=== PATIENT | female | born 1960 | race Caucasian/White ===

== ENCOUNTER 2017-07-07 19:01 | Emergency (ER) | payer MEDICARE, MEDICAID ==
[2017-07-07 19:40] VITALS: BP 158/102; PULSE 97; RESP 23; TEMP 98.1; O2SAT 97
[2017-07-07] MEDS ORDERED: SODIUM CHLORIDE 0.9% FLUSH 10 ML FLUSH IVF PRN (20:00)
[2017-07-07] MEDS ORDERED: methylPREDNISolone SOD SUCC 125 MG/2 ML VIAL IV PUSH ONE (20:00)
[2017-07-07] MEDS ORDERED: RESP: LIDOCAINE HCL 4% PF 5 ML NEB NEB ONE (20:00)
--- NOTE | 2017-07-07 20:00 | PD ---
HPI Chief Complaint: Respiratory Symptoms Time Seen by Provider: 19:44 Travel History International Travel<30 days: No Contact w/Intl Traveler<30days: No Traveled to known affect area: No History of Present Illness HPI The patient is a 56-year-old female who presents to emergency department for shortness of breath and wheezing. The patient notes for episodes of bronchitis in the last 6 months requiring antibiotics. The patient states every time she is exposed to her grandchildren will have cough and cold symptoms she develops wheezing and coughing. The patient states she awakened from sleep earlier today and was gasping for air, was short of breath, felt like she was choking. The patient does have a history of sleep apnea and was using her CPAP. She does complain of wheezing and a dry nonproductive cough. She denies any tobacco use or known history of COPD, asthma, or congestive heart failure. She does have a history of diabetes and sleep apnea. She recently changed physicians and is currently seen in the [facility]. She denies any recent hospitalizations, travel, or surgery. She denies any history of pulmonary embolism or DVT. She denies any lower extremity edema. Symptoms are moderate. PFSH Past Medical History Diabetes: Yes Patient Takes Glucophage: No Hypertension: Yes Neurologic: Yes (Neuropathy) Respiratory: Yes (Bronchitits) Sleep Apnea: Yes Tetanus Vaccination: > 5 Years Influenza Vaccination: Yes ?: Not Menopausal: Yes : 3 Para: 2 Miscarriage: 1 : 0 Past Surgical History Section: Yes (x2) Tonsillectomy: Yes Social History Alcohol Use: Yes (Occ) Tobacco Use: No Substance Use: No Allergies-Medications (Allergen,Severity, Reaction): Coded Allergies: No Known Allergies (Unverified , 07/07/17) Reported Meds & Prescriptions Reported Meds & Active Scripts Active Reported Glipizide 5 Mg Tab 5 Mg PO BIDAC Take 30 minutes before a meal Januvia (Sitagliptin Phosphate) 50 Mg Tab 50 Mg PO DAILY Gabapentin 600 Mg Tab 600 Mg PO TID Amlodipine (Amlodipine Besylate) 10 Mg Tab 10 Mg PO DAILY Atorvastatin (Atorvastatin Calcium) 10 Mg Tab 10 Mg PO HS Review of Systems Except as stated in HPI: all other systems reviewed are Neg General / Constitutional: No: Fever HENT: No: Lightheadedness Cardiovascular: No: Chest Pain or Discomfort Respiratory: Positive: Cough, Shortness of Breath, Wheezing Gastrointestinal: No: Nausea, Vomiting, Abdominal Pain Musculoskeletal: No: Edema Neurologic: No: Dizziness Physical Exam Narrative GENERAL: Awake, alert, pleasant 56-year-old female who appears her stated age and is in mild respiratory distress. SKIN: Focused skin assessment warm/dry. HEAD: Atraumatic. Normocephalic. EYES: Pupils equal and round. No scleral icterus. No injection or drainage. ENT: No nasal bleeding or discharge. Mucous membranes pink and moist. NECK: Trachea midline. No JVD. CARDIOVASCULAR: Regular, tachycardic with a heart rate of 105. RESPIRATORY: No accessory muscle use. Diffuse wheezing. GASTROINTESTINAL: Abdomen soft, non-tender, nondistended. MUSCULOSKELETAL: No obvious deformities. No clubbing. No cyanosis. No edema. NEUROLOGICAL: Awake and alert. No obvious cranial nerve deficits. Motor grossly within normal limits. Normal speech. PSYCHIATRIC: Appropriate mood and affect; insight and judgment normal. Data Data Last Documented VS Vital Signs Date Time Temp Pulse Resp B/P (MAP) Pulse Ox O2 Delivery O2 Flow Rate FiO2 07/07/17 22:25 89 18 147/80 (102) 97 Nasal Cannula 2.00 07/07/17 19:40 98.1 Orders Orders Complete Blood Count With Diff (07/07/17 19:53) Comprehensive Metabolic Panel (07/07/17 19:53) B-Type Natriuretic Peptide (07/07/17 19:53) D-Dimer (07/07/17 19:53) Magnesium (Mg) (07/07/17 19:53) Ckmb (Isoenzyme) Profile (07/07/17 19:53) Troponin I (07/07/17 19:53) Iv Access Insert/Monitor (07/07/17 19:53) Electrocardiogram (07/07/17 19:53) Ecg Monitoring (07/07/17 19:53) Oximetry (07/07/17 19:53) Oxygen Administration (07/07/17 19:53) Chest, Single Ap (07/07/17 19:53) Sodium Chloride 0.9% Flush (Ns Flush) (07/07/17 20:00) Methylprednisolone So Succ Inj (Solumedr (07/07/17 20:00) Albuterol-Ipratropium Neb (Duoneb Neb) (07/07/17 20:00) Lidocaine Pf 4% Neb (Lidocaine Pf 4% Neb (07/07/17 20:00) Ct Pulmonary Angiogram (07/07/17 ) CKMB (07/07/17 19:59) CKMB% (07/07/17 19:59) Sodium Chlor 0.9% 1000 Ml Inj (Ns 1000 M (07/07/17 21:15) Iodixanol 320 Inj (Rad Ct) (Visipaque 32 (07/07/17 23:10) Azithromycin Inj (Zithromax Inj) (07/07/17 23:30) Albuterol-Ipratropium Neb (Duoneb Neb) (07/07/17 23:30) Ed Discharge Order (07/07/17 23:38) Labs Laboratory Tests Test 07/07/17 19:59 White Blood Count 5.4 TH/MM3 Red Blood Count 5.13 MIL/MM3 Hemoglobin 14.0 GM/DL Hematocrit 42.1 % Mean Corpuscular Volume 81.9 FL Mean Corpuscular Hemoglobin 27.2 PG Mean Corpuscular Hemoglobin Concent 33.2 % Red Cell Distribution Width 14.6 % Platelet Count 234 TH/MM3 Mean Platelet Volume 7.5 FL Neutrophils (%) (Auto) 47.7 % Lymphocytes (%) (Auto) 33.4 % Monocytes (%) (Auto) 16.9 % Eosinophils (%) (Auto) 1.2 % Basophils (%) (Auto) 0.8 % Neutrophils # (Auto) 2.6 TH/MM3 Lymphocytes # (Auto) 1.8 TH/MM3 Monocytes # (Auto) 0.9 TH/MM3 Eosinophils # (Auto) 0.1 TH/MM3 Basophils # (Auto) 0.0 TH/MM3 CBC Comment DIFF FINAL Differential Comment D-Dimer Quantitative (PE/DVT) 0.76 MG/L FEU Blood Urea Nitrogen 19 MG/DL Creatinine 1.39 MG/DL Random Glucose 181 MG/DL Total Protein 7.9 GM/DL Albumin 3.5 GM/DL Calcium Level 8.6 MG/DL Magnesium Level 2.0 MG/DL Alkaline Phosphatase 134 U/L Aspartate Amino Transf (AST/SGOT) 34 U/L Alanine Aminotransferase (ALT/SGPT) 33 U/L Total Bilirubin 0.4 MG/DL Sodium Level 132 MEQ/L Potassium Level 3.9 MEQ/L Chloride Level 100 MEQ/L Carbon Dioxide Level 24.6 MEQ/L Anion Gap 7 MEQ/L Estimat Glomerular Filtration Rate 39 ML/MIN Total Creatine Kinase 260 U/L Creatine Kinase MB 2.3 NG/ML Creatine Kinase MB % 0.9 % Troponin I LESS THAN 0.02 NG/ML B-Type Natriuretic Peptide 3 PG/ML MDM Medical Decision Making Medical Screen Exam Complete: Yes Emergency Medical Condition: Yes Medical Record Reviewed: Yes Interpretation(s) EKG reveals normal sinus rhythm with a rate 89. Nonspecific T-wave changes. Chest x-ray reveals no acute cardiopulmonary disease. Last Impressions Chest X-Ray 07/07/17 1953 Signed Impressions: Service Date/Time: Friday, July 07, 2017 20:22 - CONCLUSION: 1. No acute cardiopulmonary disease. Samir Dotson MD CT Angiography 07/07/17 0000 Signed Impressions: Service Date/Time: Friday, July 07, 2017 22:58 - CONCLUSION: 1. No evidence of pulmonary embolism. 2. Patchy reticulonodular opacities greatest in left lower lobe and lingula which likely are infectious or inflammatory. Terence Carroll MD Laboratory Tests Test 07/07/17 19:59 White Blood Count 5.4 TH/MM3 Red Blood Count 5.13 MIL/MM3 Hemoglobin 14.0 GM/DL Hematocrit 42.1 % Mean Corpuscular Volume 81.9 FL Mean Corpuscular Hemoglobin 27.2 PG Mean Corpuscular Hemoglobin Concent 33.2 % Red Cell Distribution Width 14.6 % Platelet Count 234 TH/MM3 Mean Platelet Volume 7.5 FL Neutrophils (%) (Auto) 47.7 % Lymphocytes (%) (Auto) 33.4 % Monocytes (%) (Auto) 16.9 % Eosinophils (%) (Auto) 1.2 % Basophils (%) (Auto) 0.8 % Neutrophils # (Auto) 2.6 TH/MM3 Lymphocytes # (Auto) 1.8 TH/MM3 Monocytes # (Auto) 0.9 TH/MM3 Eosinophils # (Auto) 0.1 TH/MM3 Basophils # (Auto) 0.0 TH/MM3 CBC Comment DIFF FINAL Differential Comment D-Dimer Quantitative (PE/DVT) 0.76 MG/L FEU Blood Urea Nitrogen 19 MG/DL Creatinine 1.39 MG/DL Random Glucose 181 MG/DL Total Protein 7.9 GM/DL Albumin 3.5 GM/DL Calcium Level 8.6 MG/DL Magnesium Level 2.0 MG/DL Alkaline Phosphatase 134 U/L Aspartate Amino Transf (AST/SGOT) 34 U/L Alanine Aminotransferase (ALT/SGPT) 33 U/L Total Bilirubin 0.4 MG/DL Sodium Level 132 MEQ/L Potassium Level 3.9 MEQ/L Chloride Level 100 MEQ/L Carbon Dioxide Level 24.6 MEQ/L Anion Gap 7 MEQ/L Estimat Glomerular Filtration Rate 39 ML/MIN Total Creatine Kinase 260 U/L Creatine Kinase MB 2.3 NG/ML Creatine Kinase MB % 0.9 % Troponin I LESS THAN 0.02 NG/ML B-Type Natriuretic Peptide 3 PG/ML Differential Diagnosis Differential diagnosis includes bronchitis, reactive airway disease, pneumonia, pleural effusion, COPD, congestive heart failure, pulmonary edema, cardiomyopathy, pulmonary embolism. Narrative Course IV was established, labs are drawn and sent, and the patient was placed on cardiac telemetry monitoring and continuous pulse oximetry monitoring. EKG was ordered and interpreted. Chest x-ray was obtained. 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 The patient's d-dimer was positive, therefore, CT pulmonary angiogram was ordered. Chest x-ray was unremarkable. White count was unremarkable. Troponin was negative. CT pulmonary angiogram does reveal opacities in the right and left lung pryor which may be inflammatory versus infectious. This may be bronchitis versus early pneumonia, therefore, patient was administered Zithromax 500 mg intravenously and 1 more duo neb. The patient is advised to follow-up with a nozzleman on an outpatient basis that she may benefit from pulmonary function test. The patient agrees and understands. The patient be discharged home on Zithromax, prednisone, and an albuterol inhaler. She will be provided a copy of her labs and radiologic findings at discharge. Diagnosis Primary Impression: Bronchitis Additional Impression: Dyspnea Qualified Codes: R06.02 - Shortness of breath Patient Instructions: General Instructions Additional Instructions: Medications as directed. Follow-up with her primary physician for referral to pulmonology. You may benefit from outpatient full pulmonary function test. Medications as directed. Return if symptoms worsen or progress. Please provide the patient a copy of her CT results, chest x-ray results, and lab results at discharge. Med/Other Pt SpecificInfo: Prescription(s) given Scripts Azithromycin (Zithromax Z-Stephan) 250 Mg Dspk 250 MG PO DIRECTED for Infection, #1 DSPK 0 Refills 500 MG (2 tabs) day 1, then 1 tab days 2-5. Prov: Harish Valentine MD 07/07/17 Albuterol 8.5 GM Inh (Proair Hfa 8.5 GM Inh) 90 Mcg/Act Aer 2 PUFF INH Q4-6H Y for SHORTNESS OF BREATH, #1 INHALER 0 Refills 108 mcg/actuation Prov: Harish Valentine MD 07/07/17 Prednisone (Prednisone) 20 Mg Tab 40 MG PO DAILY, #10 TAB 0 Refills Take 40 mg (2 tablets) daily for 5 days Prov: Harish Valentine MD 07/07/17 Disposition: 01 DISCHARGE HOME Condition: Stable Harish Valentine MD July 07, 2017 20:00
[2017-07-07 20:05] VITALS: O2SAT 99
[2017-07-07] MEDS: RESP: ALBUTEROL 2.5 MG/IPRATROPIUM 0.5 MG NEB (SCH) INH ×2 (20:05→20:06)
[2017-07-07 20:23] LABS: AUTOMATED NEUTROPHIL # 2.6 TH/MM3 (1.8-7.7); BASOPHIL % 0.8 % (0.0-2.0); EOSINOPHIL # 0.1 TH/MM3 (0-0.4); EOSINOPHIL % 1.2 % (0.0-4.0); HEMATOCRIT 42.1 % (35.0-46.0); LYMPH % 33.4 % (9.0-44.0); LYMPHOCYTE # 1.8 TH/MM3 (1.0-4.8); MEAN CELL VOLUME 81.9 FL (80.0-100.0); MEAN CORPUSCULAR HEMOGLOBIN 27.2 PG (27.0-34.0); MEAN CORPUSCULAR HGB CONC 33.2 % (32.0-36.0); MEAN PLATELET VOLUME 7.5 FL (7.0-11.0); MONO % 16.9 % (0.0-8.0); MONOCYTE # 0.9 TH/MM3 (0-0.9); NEUT % 47.7 % (16.0-70.0); PLATELET COUNT 234 TH/MM3 (150-450); RED BLOOD COUNT 5.13 MIL/MM3 (4.00-5.30); RED CELL DISTRIBUTION WIDTH 14.6 % (11.6-17.2); WHITE BLOOD COUNT 5.4 TH/MM3 (4.0-11.0)
[2017-07-07 20:30] VITALS: BP 148/71; PULSE 86; RESP 18; O2SAT 96
[2017-07-07] MEDS ORDERED: AMLO10TA2 PO (20:33)
[2017-07-07] MEDS ORDERED: SITA50 PO (20:33)
[2017-07-07] MEDS ORDERED: GABA600T PO (20:33)
[2017-07-07] MEDS ORDERED: GLIP5TAB8 PO (20:33)
[2017-07-07] MEDS ORDERED: ATOR10TA15 PO (20:33)
--- NOTE | 2017-07-07 20:35 | RADRPT ---
EXAM DATE/TIME: 07/07/2017 20:22 [facility] COMPARISON: No previous studies available for comparison. INDICATIONS : Short of Breath and wheezing MEDICAL HISTORY : None. SURGICAL HISTORY : None. ENCOUNTER: Initial ACUITY: 1 day PAIN SCORE: 0/10 LOCATION: chest FINDINGS: A single view of the chest demonstrates the lungs to be symmetrically aerated without evidence of mas s, infiltrate or effusion. The cardiomediastinal contours are unremarkable. Osseous structures are intact. CONCLUSION: 1. No acute cardiopulmonary disease. Samir Dotson MD on July 07, 2017 at 20:33 Board Certified Radiologist. This report was verified electronically.
[2017-07-07 20:48] LABS: ALT (GPT) 33 U/L (10-53)
[2017-07-07 21:03] LABS: ALBUMIN 3.5 GM/DL (3.4-5.0); ALKALINE PHOSPHATASE 134 U/L (45-117); AST (GOT) 34 U/L (15-37); BICARBONATE 24.6 MEQ/L (21.0-32.0); BLOOD UREA NITROGEN 19 MG/DL (7-18); CALCIUM 8.6 MG/DL (8.5-10.1); CHLORIDE 100 MEQ/L (98-107); CREATININE 1.39 MG/DL (0.50-1.00); GLOMERULAR FILTRATION RATE 39 ML/MIN (>89); GLUCOSE,RANDOM 181 MG/DL (74-106); SODIUM (NA) 132 MEQ/L (136-145); TOTAL BILIRUBIN ADULT 0.4 MG/DL (0.2-1.0); TOTAL PROTEIN 7.9 GM/DL (6.4-8.2); TROPONIN I LESS THAN 0.02 NG/ML (0.02-0.05)
[2017-07-07] MEDS ORDERED: SODIUM CHLOR 0.9% 1000 ML INJ 1,000 ML IV ONE (21:15)
[2017-07-07 22:25] VITALS: BP 147/80; PULSE 89; RESP 18; O2SAT 97
--- NOTE | 2017-07-07 22:33 | EKG ---
Date Performed: 07/07/2017 Time Performed: 20:29:26 PTAGE: 56 years EKG: Sinus rhythm NONSPECIFIC T-WAVE ABNORMALITY BORDERLINE ECG NO PREVIOUS TRACING DOCTOR: Ronald Medellin Interpretating Date/Time 07/07/2017 22:33:00
[2017-07-07] MEDS ORDERED: IODIXANOL 320 MG/ML 10 ML VIAL (for Rad CT) IVCONTRAST ONE (23:10)
--- NOTE | 2017-07-07 23:27 | RADRPT ---
EXAM DATE/TIME: 07/07/2017 22:58 [facility] COMPARISON: CHEST SINGLE AP, July 07, 2017, 20:22. INDICATIONS : Wheezing and shortness of breath for one week. IV CONTRAST: 49 cc Visipaque (iodixanol) IV RADIATION DOSE: 10.89 CTDIvol (mGy) MEDICAL HISTORY : Renal insufficiency, chronic. Hypertension. Diabetes mellitus type 2. SURGICAL HISTORY : Tonsillectomy. ENCOUNTER: Initial ACUITY: 1 week PAIN SCALE: 0/10 LOCATION: chest TECHNIQUE: Volumetric scanning of the chest was performed using a pulmonary embolism protocol MIP images were re constructed. Using automated exposure control and adjustment of the mA and/or kV according to patien t size, radiation dose was kept as low as reasonably achievable to obtain optimal diagnostic quality images. DICOM format image data is available electronically for review and comparison. Follow-up recommendations for detected pulmonary nodules are based at a minimum on nodule size and pa tient risk factors according to Fleischner Society Guidelines. FINDINGS: PULMONARY ARTERIES: No filling defects are seen in the pulmonary arteries through the segmental level. LUNGS: There is no pneumothorax . There are patchy reticular-nodular opacities in the left lower lobe and li ngula. Minimal patchy opacity is present in the right middle lobe as well. There are no large masses. No concerning pulmonary nodule is visualized. PLEURAE: There is no pleural thickening or pleural effusion. MEDIASTINUM: There is good visualization of the great vessels of the middle mediastinum. No evidence of mediastin al or hilar adenopathy/mass. MUSCULOSKELETAL: Within normal limits for patient age. MISCELLANEOUS: The visualized upper abdominal organs demonstrate no acute abnormality. CONCLUSION: 1. No evidence of pulmonary embolism. 2. Patchy reticulonodular opacities greatest in left lower lobe and lingula which likely are infectio us or inflammatory. Terence Carroll MD on July 07, 2017 at 23:23 Board Certified Radiologist. This report was verified electronically.
[2017-07-07] MEDS ORDERED: RESP: ALBUTEROL 2.5 MG/IPRATROPIUM 0.5 MG NEB (SCH) NEB ONE (23:30)
[2017-07-07] MEDS ORDERED: AZITHROMYCIN INJ 500 MG in SODIUM CHLOR 0.9% 250 ML INJ 250 ML IV ONE (23:30)
[2017-07-07] MEDS ORDERED: PRED20 PO (23:42)
[2017-07-07] MEDS ORDERED: ZITHTAB PO (23:42)
[2017-07-07] MEDS ORDERED: ALBUAER3 INH (23:42)
[2017-07-08] VITALS: BP 157/91; PULSE 90; RESP 18; O2SAT 94
== END 2017-07-08 01:00 | disposition home or self-care (01) ==
LOC: NEPC 19:01
DX: J40 Bronchitis, not specified as acute or chronic (principal); R06.02 Shortness of breath; R94.31 Abnormal electrocardiogram [ECG] [EKG]; E11.9 Type 2 diabetes mellitus without complications; I10 Essential (primary) hypertension; G47.30 Sleep apnea, unspecified; Z79.84 Long term (current) use of oral hypoglycemic drugs; Z79.899 Other long term (current) drug therapy; Z86.69 Personal history of other diseases of the nervous system and sense organs
CPT/HCPCS: 71045; 71275; 80053; 82550; 82552; 83735; 83880; 84484; 85025; 85379; 93005; 94640; 94664; 96361; 96374; 99285; J0456; J2930; J7030; J7050; Q9967